=== PATIENT | female | born 1975 | race Two or more races ===

== ENCOUNTER 2020-08-07 12:45 | Outpatient (REF) | payer MEDICAID, SELFPAY | END 2020-08-07 12:46 | disposition home or self-care (01) | LOC: HO.LAB 12:45 | PROVIDERS: PCP Pediatrics; Visit Provider Internal Medicine | DX: Z20.822 Contact with and (suspected) exposure to COVID-19 (principal) | CPT/HCPCS: 36415; C9803; U0003 ==

== ENCOUNTER 2022-03-24 13:13 | Outpatient (REF) | payer OTHER, SELFPAY ==
[2022-03-24 16:00] LABS: MANUAL DIFF FLAG NO
[2022-03-24 17:27] LABS: Basophils Absolute Auto 0.1 X10*3/uL (0.0-0.2); Basophils Percent Auto 0.6 % (0-2); Eosinophils Absolute Auto 0.2 X10*3/uL (0.0-0.4); Eosinophils Percent Auto 1.7 % (0-4); Hematocrit 41.6 % (37.0-47.0); Hemoglobin 13.5 g/dl (12.0-16.0); Imm Gran Abs Auto 0.05 X10*3/uL (0.00-0.03); Imm Gran Pct Auto 0.5 % (0.0-0.4); Lymphocytes Absolute Auto 3.8 X10*3/uL (1.2-4.9); Lymphocytes Percent Auto 35.8 % (20-40); Mean Corpuscular HGB Conc 32.5 g/dl (31.0-35.0); Mean Corpuscular Volume 95.4 fL (80.0-98.0); Monocytes Absolute Auto 0.8 X10*3/uL (0.1-1.2); Monocytes Percent Auto 7.7 % (2-11); Neutrophils Absolute Auto 5.8 x10*3/uL (2.0-8.3); Neutrophils Percent Auto 53.7 % (45-73); Platelet Count 236 X10*3/uL (160-400); Red Blood Count 4.36 X10*6/uL (4.20-5.50); Red Cell Distribution Width 13.2 % (11.0-16.0); White Blood Count 10.7 X10*3/uL (4.8-10.8)
[2022-03-24 17:56] LABS: Alanine Aminotransferase 21 U/L (0-31); Albumin Level 4.3 g/dL (3.5-5.0); Alkaline Phosphatase 103 U/L (39-117); Anion Gap 14 (12-20); Aspartate Amino Transferase 23 U/L (5-31); Bilirubin Total < 0.2 mg/dL (0.0-1.0); Blood Urea Nitrogen 13 mg/dL (9-16); Carbon Dioxide 29 mmol/L (22-29); Chloride 106 mmol/L (96-108); Estimated Glomerular Filt Rate > 60; Glucose Random 92 mg/dL (60-115); Potassium 4.5 mmol/L (3.3-5.1); Sodium 144 mmol/L (135-145); Total Protein 7.8 g/dL (6.5-8.0)
== END 2022-03-24 13:14 | disposition home or self-care (01) ==
LOC: HO.LAB 13:13
PROVIDERS: PCP Internal Medicine; Visit Provider Nurse Practitioner
DX: Z01.818 Encounter for other preprocedural examination (principal); A04.8 Other specified bacterial intestinal infections; Z80.0 Family history of malignant neoplasm of digestive organs
CPT/HCPCS: 36415; 80053; 85025; 99202

== ENCOUNTER 2022-03-31 13:24 | Outpatient (REF) | payer OTHER, SELFPAY | END 2022-03-31 13:25 | disposition home or self-care (01) | LOC: HO.LNP 13:24 | PROVIDERS: Visit Provider Nurse Practitioner | DX: Z01.818 Encounter for other preprocedural examination (principal) | CPT/HCPCS: 87338 ==

== ENCOUNTER → 2022-05-05 13:25 | Outpatient (BNVA) | payer OTHER, SELFPAY | PROVIDERS: PCP Internal Medicine; Visit Provider Nurse Practitioner | DX: R14.0 Abdominal distension (gaseous) (principal); R10.10 Upper abdominal pain, unspecified; K21.9 Gastro-esophageal reflux disease without esophagitis | CPT/HCPCS: 99212 ==

== ENCOUNTER 2022-05-25 08:24 | Outpatient (REF) | payer OTHER, SELFPAY ==
--- NOTE | ~2022-05-25 | US_ITS ---
EXAMINATION: US ABDOMEN COMPLETE CLINICAL INFORMATION: Upper abdominal pain, unspecified. COMPARISON: Ultrasound retroperitoneal complete (renal) 01/26/2022 and 07/24/2021. TECHNIQUE: Real-time imaging of the abdominal viscera. FINDINGS: PANCREAS: Normal. ABDOMINAL AORTA: The proximal, mid, and distal segments are normal in caliber. INFERIOR VENA CAVA: Visualized portions are normal. LIVER: Normal. The liver is normal in size. The liver contour is normal. Parenchymal echogenicity is normal. No focal hepatic lesion. There is no intrahepatic biliary duct dilatation seen. GALLBLADDER: Normal. The gallbladder is physiologically distended without evidence of stones, sludge, polyps, wall thickening or pericholecystic fluid. COMMON BILE DUCT: Normal in caliber measuring 0.3 cm in diameter. RIGHT KIDNEY: Normal. No hydronephrosis. No renal calculi or focal parenchymal lesions. The kidney measures 12.7 cm in maximum dimension. LEFT KIDNEY: Lower pole 0.3 cm echogenic focus, possible nonobstructing calculus. No hydronephrosis or focal parenchymal lesions. The kidney measures 12.5 cm in maximum dimension. SPLEEN: Normal. The spleen measures 7.7 cm in maximum dimension. FREE FLUID: None. US/US abdomen complete IMPRESSION: Left renal lower pole 0.3 cm possible nonobstructing calculus. Otherwise unremarkable study.
== END 2022-05-25 08:25 | disposition home or self-care (01) ==
LOC: HO.HMGCX 08:24
PROVIDERS: Visit Provider Nurse Practitioner
DX: R10.10 Upper abdominal pain, unspecified (principal); R14.0 Abdominal distension (gaseous)
CPT/HCPCS: 76700

== ENCOUNTER 2022-07-29 09:32 | Day surgery (SDC) | payer OTHER, SELFPAY ==
[2022-07-23 14:31] VITALS: BMI 26.4
--- NOTE | 2022-07-28 12:45 | HO.ANESPROP2 ---
Documented by User: Brandy Smart NP 07/28/22 12:45 HPI - Anesthesia Eval Consult details Narrative: 47yo F for Colonoscopy PMFSH Active Problems Active Problems: All Active Problems (Updated 07/23/22 @ 14:34 by Rachael Reyes RN) Pre-op examination (Acute) Family history of colon cancer (Acute) H. pylori infection (Acute) Hidradenitis suppurativa (Acute) Depression with anxiety (Acute) Chronic low back pain (Acute) Herniation of intervertebral disc between L5 and S1 (Acute) Allergic rhinitis (Acute) GERD (gastroesophageal reflux disease) (Acute) Acanthosis nigricans (Acute) Abdominal bloating (Acute) Upper abdominal pain (Acute) Past Medical History Medical History (Updated 07/23/22 @ 14:34 by Rachael Reyes RN) Back pain Depression with anxiety GERD (gastroesophageal reflux disease) Surgical History Surgical History (Updated 07/23/22 @ 14:33 by Rachael Reyes RN) H/O colonoscopy H/O esophagogastroduodenoscopy History of excision of pilonidal cyst History of hysterectomy Hx of tubal ligation Social History Social History Patient Tobacco Use Status: Never used Tobacco Use of substances other than those prescribed or required for medical reasons: Yes Are you DNR?: No Advance Directives: No Advance Directives Information Provided: Yes Meds Allergies Allergy/AdvReac Type Severity Reaction Status Date / Time No Known Allergies Allergy Verified 03/24/22 13:32 Home Medications Medication Instructions Recorded Confirmed Last Taken Type alclometasone 0.05 % topical topical 03/24/22 Unknown History ointment buspirone 10 mg tablet 10 mg PO DAILY 03/24/22 07/29/22 Unknown History clindamycin phosphate 1 % topical 1 appl topical BID 03/24/22 07/29/22 Unknown History gel docusate sodium 100 mg capsule 100 mg PO BID 03/24/22 07/29/22 Unknown History ergocalciferol (vitamin D2) 1,250 1,250 mcg PO QWEEK 03/24/22 07/29/22 Unknown History mcg (50,000 unit) capsule ketorolac 0.5 % eye drops 1 drp ophthalmic-Right Q6H 03/24/22 07/29/22 Unknown History loratadine 10 mg tablet 10 mg PO DAILY 03/24/22 07/29/22 Unknown History minocycline 100 mg capsule 100 mg PO BID 03/24/22 07/29/22 Unknown History mometasone 0.1 % topical cream appl topical 03/24/22 Unknown History pantoprazole 40 mg tablet,delayed 40 mg PO DAILY 03/24/22 07/29/22 Unknown History release risperidone 1 mg tablet 1 mg PO BEDTIME 03/24/22 07/29/22 Unknown History sertraline 100 mg tablet 200 mg PO DAILY 03/24/22 07/29/22 Unknown History Exam Exam Date and Time: July 28, 2022 1245 Height,Weight and Vital Signs: Height 5 ft 11 in Weight 86.183 kg Pertinent Lab Results Pertinent Lab Results: Laboratory Tests 03/24/22 03/24/22 15:59 15:59 WBC 10.7 Hgb 13.5 Hct 41.6 Plt Count 236 Sodium 144 Potassium 4.5 Chloride 106 Carbon Dioxide 29 BUN 13 Creatinine 0.87 Documented by User: Darien Vega MD 07/29/22 10:41 PMF Past Medical History Medical History (Updated 07/23/22 @ 14:34 by Rachael Reyes RN) Back pain Depression with anxiety GERD (gastroesophageal reflux disease) Family History Family history of problems with anesthesia: No Surgical History Surgical History (Updated 07/23/22 @ 14:33 by Rachael Reyes RN) H/O colonoscopy H/O esophagogastroduodenoscopy History of excision of pilonidal cyst History of hysterectomy Hx of tubal ligation History of Problems with Anesthesia: No Social History Social History Patient Tobacco Use Status: Never used Tobacco Use of substances other than those prescribed or required for medical reasons: Yes Are you DNR?: No Advance Directives: No Advance Directives Information Provided: Yes Meds Allergies Allergy/AdvReac Type Severity Reaction Status Date / Time No Known Allergies Allergy Verified 03/24/22 13:32 Home Medications Medication Instructions Recorded Confirmed Last Taken Type alclometasone 0.05 % topical topical 03/24/22 Unknown History ointment buspirone 10 mg tablet 10 mg PO DAILY 03/24/22 07/29/22 Unknown History clindamycin phosphate 1 % topical 1 appl topical BID 03/24/22 07/29/22 Unknown History gel docusate sodium 100 mg capsule 100 mg PO BID 03/24/22 07/29/22 Unknown History ergocalciferol (vitamin D2) 1,250 1,250 mcg PO QWEEK 03/24/22 07/29/22 Unknown History mcg (50,000 unit) capsule ketorolac 0.5 % eye drops 1 drp ophthalmic-Right Q6H 03/24/22 07/29/22 Unknown History loratadine 10 mg tablet 10 mg PO DAILY 03/24/22 07/29/22 Unknown History minocycline 100 mg capsule 100 mg PO BID 03/24/22 07/29/22 Unknown History mometasone 0.1 % topical cream appl topical 03/24/22 Unknown History pantoprazole 40 mg tablet,delayed 40 mg PO DAILY 03/24/22 07/29/22 Unknown History release risperidone 1 mg tablet 1 mg PO BEDTIME 03/24/22 07/29/22 Unknown History sertraline 100 mg tablet 200 mg PO DAILY 03/24/22 07/29/22 Unknown History Exam Airway Mallampati Class: I TM Dist: >3cm Neck ROM: Full Loose/Missing/Broken Teeth: No Heart: ok Lungs: ok Assessment and Plan Assessment Anesthesia Assessment: Anesthesia Plan Discussed and Chart Reviewed Final Anesthetic Review Family History of Problems with Anesthesia: No History of Problems with Anesthesia: No NPO: Yes ASA Class: II Final Preanesthetic Review: No Changes in Pt Med Stat, Meds/Allgs Chart Reviewed, Consent Obtained/Reviewed and Anes Risks/Benef Reviewed Patient Risk: Low Procedure Risk: Low Anesthetic Plan Anesthetic Plan: MAC: and Agree w/ Assess. and Plan Disposition: Standard PACU
[2022-07-29 09:52] VITALS: BMI 25.1
[2022-07-29 09:59] VITALS: BP 135/84; PULSE 72; RESP 18; TEMP 36.2; O2SAT 100
[2022-07-29] MEDS: Lactated Ringers 1,000 ML 100 ML IVCONT (10:35)
--- NOTE | 2022-07-29 10:54 | HO.ANESPROP2 ---
HPI - Anesthesia Eval Consult details Narrative: 47 yo female patient for colonoscopy PMFSH Active Problems Active Problems: All Active Problems (Updated 07/23/22 @ 14:34 by Rachael Reyes RN) Pre-op examination (Acute) Family history of colon cancer (Acute) H. pylori infection (Acute) Hidradenitis suppurativa (Acute) Depression with anxiety (Acute) Chronic low back pain (Acute) Herniation of intervertebral disc between L5 and S1 (Acute) Allergic rhinitis (Acute) GERD (gastroesophageal reflux disease) (Acute) Acanthosis nigricans (Acute) Abdominal bloating (Acute) Upper abdominal pain (Acute) Past Medical History Medical History Back pain Depression with anxiety GERD (gastroesophageal reflux disease) Family History Family history of problems with anesthesia: No Surgical History Surgical History H/O colonoscopy H/O esophagogastroduodenoscopy History of excision of pilonidal cyst History of hysterectomy Hx of tubal ligation History of Problems with Anesthesia: No Social History Social History Patient Tobacco Use Status: Never used Tobacco Use of substances other than those prescribed or required for medical reasons: Yes Are you DNR?: No Advance Directives: No Advance Directives Information Provided: Yes Meds Allergies Allergy/AdvReac Type Severity Reaction Status Date / Time No Known Allergies Allergy Verified 03/24/22 13:32 Active Medications: Current Medications Acetaminophen (Acetaminophen 325 Mg Tablet) 650 mg PO ONCE PRN PRN Reason: Pain, Mild (Pain Scale 1-3) Lactated Ringer's (Lr) 1,000 mls @ 100 mls/hr IVCONT .Q10H GRIS Last Admin: 07/29/22 10:35 Dose: 100 mls/hr Ondansetron HCl (Ondansetron Hcl 4 Mg/2 Ml Vial) 4 mg IVPUSH ONCE PRN PRN Reason: Nausea and Vomiting Home Medications Medication Instructions Recorded Confirmed Last Taken Type alclometasone 0.05 % topical topical 03/24/22 Unknown History ointment buspirone 10 mg tablet 10 mg PO DAILY 03/24/22 07/29/22 Unknown History clindamycin phosphate 1 % topical 1 appl topical BID 03/24/22 07/29/22 Unknown History gel docusate sodium 100 mg capsule 100 mg PO BID 03/24/22 07/29/22 Unknown History ergocalciferol (vitamin D2) 1,250 1,250 mcg PO QWEEK 03/24/22 07/29/22 Unknown History mcg (50,000 unit) capsule ketorolac 0.5 % eye drops 1 drp ophthalmic-Right Q6H 03/24/22 07/29/22 Unknown History loratadine 10 mg tablet 10 mg PO DAILY 03/24/22 07/29/22 Unknown History minocycline 100 mg capsule 100 mg PO BID 03/24/22 07/29/22 Unknown History mometasone 0.1 % topical cream appl topical 03/24/22 Unknown History pantoprazole 40 mg tablet,delayed 40 mg PO DAILY 03/24/22 07/29/22 Unknown History release risperidone 1 mg tablet 1 mg PO BEDTIME 03/24/22 07/29/22 Unknown History sertraline 100 mg tablet 200 mg PO DAILY 03/24/22 07/29/22 Unknown History Exam Exam Date and Time: July 29, 2022 1054 Height,Weight and Vital Signs: Height 5 ft 11 in Weight 81.647 kg Last Vital Signs Temp 97.2 F 07/29/22 09:59 Pulse 72 07/29/22 09:59 Resp 18 07/29/22 09:59 BP 135/84 07/29/22 09:59 Pulse Ox 100 07/29/22 09:59 O2 Del Method 07/29/22 09:59 Assessment and Plan Final Anesthetic Review Family History of Problems with Anesthesia: No History of Problems with Anesthesia: No
--- NOTE | 2022-07-29 11:02 | MHC.SHP ---
Pre-Procedural Eval Section A Date of Service: 07/29/22 Section B Chief Complaint: hx of malignant neoplasm of digestive,epigastic pa Relevant Family History (Specify if Yes): No Relevant Social History: Other (specify) (cannabis) Present Medications: see Short Stay Collaborative assessment Medical History: Significant History (Back pain Depression with anxiety GERD (gastroesophageal reflux disease)) History of Previous Operations: Relevant previous surgery/procedure and date(s) (H/O colonoscopy H/O esophagogastroduodenoscopy History of excision of pilonidal cyst History of hysterectomy Hx of tubal ligation) Allergies: Allergies Allergy/AdvReac Type Severity Reaction Status Date / Time No Known Allergies Allergy Verified 03/24/22 13:32 Review of Systems Sugical H&P ROS: Negative: Constitution, Cardiovascular, Respiratory, Neurological, Psychiatric, Hem-Onc, Allergic/Immunologic, Gastrointestinal, Genitourinary, Musculoskeletal, Integumentary, Endocrine and Eyes/Ears/Nose/Throat Exam Surgical H&P Exam: Normal: HEENT, Normal: Heart, Normal: Lungs, Normal: Extremities, Normal: Abdomen, Normal: Skin and Normal: Neurological Plan Diagnosis/Plan: Unchanged I have reviewed the history and physical and performed a pertinent physical examination on my patient. No changes have occurred unless specified. Time Spent With Patient Time: Total time managing care of this patient today ____ minutes.
--- NOTE | 2022-07-29 11:06 | P.OP_ITS ---
Operative Note Operative Note Date of Service: 07/29/22 Narrative: Operative Information Procedure Description: Colonoscopy Indication: screening Anesthesia: MAC COLONOSCOPY Instrument: Olympus variable stiffness pediatric scope 190L Colonoscopy Monitoring: Vital signs and clinical assessment, continuous EKG monitoring, Pulse oximetry, Carbon Dioxide monitoring and blood pressure monitoring were done throughout the procedure. Colon withdrawal time was 9 minutes. Procedure: The patient was placed in the left lateral decubitis position and pre-procedure medications were administered. After a digital rectal examination of the ano-rectum, the video colonoscope was inserted into the rectum and advanced through the colon to the cecum/TI. The colonoscope was slowly withdrawn in a retrograde panoramic fashion and the colon mucosa was carefully examined including a retroflexed view of the rectum. Findings and interventions are described below. Procedure Difficulty: easy Findings: Terminal Ileum-normal Cecum: 7-9 mm sessile polyp removed with cold snare Ascending Colon: normal Transverse Colon -normal Descending Colon:normal Sigmoid Colon: mild diverticulosis Rectum: Retroflexion with medium sized internal hemorrhoids, grade I Anorectum - normal Colon preparation: [place] Bowel Preparation Scale Right colon; 2 Transverse colon: 2 Left colon; 2 (0 = Unprepared colon segment with mucosa not seen due to solid stool that cannot be cleared. 1 = Portion of mucosa of the colon segment seen, but other areas of the colon segment not well seen due to staining, residual stool and/or opaque liquid. 2 = Minor amount of residual staining, small fragments of stool and/or opaque liquid, but mucosa of colon segment seen well. 3 = Entire mucosa of colon segment seen well with no residual staining, small fragments of stool or opaque liquid) Impression and Post Procedure Diagnosis: diverticulosis colon polyp internal hemorrhoids Plan: High fiber diet leaflet Avoid straining at stool, epsom salts and sitz bath, anusol supps or cream Repeat Colonoscopy in 5-7 years due to adenomatous appearing polyp or earlier if clinically indicated there was some confusion as to whether or not the patient was also supposed to get an EGD. she had minimal sx and was not aware of this so it was not done. If this is still required can be rediscussed in office and ordered. Above findings were reviewed with the patient and relevant handouts were provided if indicated.
[2022-07-29 11:39] VITALS: BP 133/73; PULSE 77; RESP 16; TEMP 36.1; O2SAT 100
[2022-07-29 11:54] VITALS: BP 146/81; PULSE 71; RESP 16; TEMP 36.1; O2SAT 100
== END 2022-07-29 12:52 | disposition home or self-care (01) ==
PROVIDERS: PCP Internal Medicine; Visit Provider Internal Medicine Gastroenterology
PROC: (CPT 45385; principal; 2022-07-29 10:50)
DX: Z12.11 Encounter for screening for malignant neoplasm of colon (principal); Z80.0 Family history of malignant neoplasm of digestive organs; D12.0 Benign neoplasm of cecum; K57.30 Diverticulosis of large intestine without perforation or abscess without bleeding; K64.0 First degree hemorrhoids; K59.00 Constipation, unspecified; K21.9 Gastro-esophageal reflux disease without esophagitis; A04.8 Other specified bacterial intestinal infections; F41.8 Other specified anxiety disorders; L83 Acanthosis nigricans; J30.9 Allergic rhinitis, unspecified; Z79.899 Other long term (current) drug therapy
CPT/HCPCS: 45385; 88305

== ENCOUNTER → 2022-08-12 09:55 | Outpatient (BNVA) | payer OTHER, SELFPAY | PROVIDERS: PCP Internal Medicine; Visit Provider Nurse Practitioner | DX: K21.9 Gastro-esophageal reflux disease without esophagitis (principal); R14.0 Abdominal distension (gaseous); Z80.0 Family history of malignant neoplasm of digestive organs | CPT/HCPCS: 99212 ==

== ENCOUNTER → 2022-11-05 09:55 | Outpatient (BNVA) | payer OTHER, SELFPAY | PROVIDERS: PCP Internal Medicine; Visit Provider Internal Medicine Rheumatology | DX: M19.041 Primary osteoarthritis, right hand (principal); L73.2 Hidradenitis suppurativa | CPT/HCPCS: 99212 ==

== ENCOUNTER → 2022-11-10 10:33 | Outpatient (BNVA) | payer OTHER, SELFPAY | PROVIDERS: PCP Internal Medicine; Referring Provider Internal Medicine; Visit Provider Nurse Practitioner | DX: K21.9 Gastro-esophageal reflux disease without esophagitis (principal); R10.10 Upper abdominal pain, unspecified; K59.00 Constipation, unspecified; Z80.0 Family history of malignant neoplasm of digestive organs | CPT/HCPCS: 99212 ==

== ENCOUNTER → 2022-12-22 10:59 | Outpatient (BNVA) | payer OTHER, SELFPAY | PROVIDERS: PCP Internal Medicine; Referring Provider Internal Medicine; Visit Provider Nurse Practitioner | DX: K59.00 Constipation, unspecified (principal); K21.9 Gastro-esophageal reflux disease without esophagitis | CPT/HCPCS: 99212 ==

== ENCOUNTER 2023-06-22 10:46 | Outpatient (REF) | payer OTHER, SELFPAY ==
[2023-06-22 11:44] LABS: MANUAL DIFF FLAG NO
[2023-06-22 12:42] LABS: Basophils Absolute Auto 0.1 X10*3/uL (0.0-0.2); Basophils Percent Auto 0.6 % (0-2); Eosinophils Absolute Auto 0.1 X10*3/uL (0.0-0.4); Eosinophils Percent Auto 1.4 % (0-4); Hematocrit 41.1 % (37.0-47.0); Hemoglobin 13.4 g/dl (12.0-16.0); Imm Gran Abs Auto 0.03 X10*3/uL (0.00-0.03); Imm Gran Pct Auto 0.3 % (0.0-0.4); Lymphocytes Absolute Auto 4.9 X10*3/uL (1.2-4.9); Lymphocytes Percent Auto 47.3 % (20-40); Mean Corpuscular HGB Conc 32.6 g/dl (31.0-35.0); Mean Corpuscular Hemoglobin 31.6 pg (27.0-33.0); Mean Corpuscular Volume 96.9 fL (80.0-98.0); Mean Platelet Volume 10.5 fL (9.4-12.3); Monocytes Absolute Auto 0.9 X10*3/uL (0.1-1.2); Monocytes Percent Auto 8.8 % (2-11); Neutrophils Absolute Auto 4.3 x10*3/uL (2.0-8.3); Neutrophils Percent Auto 41.6 % (45-73); Platelet Count 234 X10*3/uL (160-400); Red Blood Count 4.24 X10*6/uL (4.20-5.50); Red Cell Distribution Width 13.3 % (11.0-16.0); White Blood Count 10.3 X10*3/uL (4.8-10.8)
[2023-06-22 12:43] LABS: Appearance Urine Clear; Color Urine Yellow; Glucose Urine UA Negative (Negative); Leukocyte Esterase Urine Negative (Negative); Nitrite Urine Negative (Negative); Specific Gravity - Urine 1.015 (1.005-1.025); Urine Blood Negative (Negative); Urine Ketones Negative (Negative); Urine Protein Negative (Neg-Trace)
[2023-06-22 13:16] LABS: Alanine Aminotransferase 17 U/L (0-31); Albumin Level 4.3 g/dL (3.5-5.0); Alkaline Phosphatase 98 U/L (39-117); Anion Gap 10 (12-20); Aspartate Amino Transferase 20 U/L (5-31); Bilirubin Total 0.3 mg/dL (0.0-1.0); Blood Urea Nitrogen 12 mg/dL (9-16); Calcium 9.8 mg/dL (8.4-10.2); Carbon Dioxide 28 mmol/L (22-29); Chloride 108 mmol/L (96-108); Estimated Glomerular Filt Rate > 60; Glucose Random 88 mg/dL (60-115); Potassium 4.5 mmol/L (3.3-5.1); Sodium 141 mmol/L (135-145); Total Protein 7.3 g/dL (6.5-8.0)
[2023-06-22 13:34] LABS: TSH reflex Free T4 0.82 uIU/mL (0.32-4.0)
== END 2023-06-22 10:47 | disposition home or self-care (01) ==
LOC: HO.LAB 10:46
PROVIDERS: PCP Internal Medicine; Visit Provider Nurse Practitioner
DX: R63.4 Abnormal weight loss (principal); K59.00 Constipation, unspecified; K21.9 Gastro-esophageal reflux disease without esophagitis; R11.0 Nausea; R10.10 Upper abdominal pain, unspecified; R10.13 Epigastric pain
CPT/HCPCS: 36415; 80053; 81003; 84443; 85025; 99212

== ENCOUNTER 2023-06-22 10:46 | Outpatient (AMB) | payer OTHER, SELFPAY ==
[2023-06-22 10:52] VITALS: BP 140/72; PULSE 75; BMI 26.0
--- NOTE | 2023-06-22 10:52 | A.OFFVIS_ITS ---
Intake Vital Signs 06/22/23 10:52 Height 5 ft 11 in Weight 186 lb 8.177 oz BMI 26.0 BP 140/72 H Blood Pressure Location Lt brachial Position Sitting Pulse 75 Intake Visit Reasons: 6 mnth follow up Intake Note: Patient presents to in office visit today in follow up of 6 months. Patient c/o diarrhea x3 days and abdominal pain after meals. She also c/o headaches, and mild nausea this morning. Bottom Sprayer Required: No Allergies No Known Allergies Allergy (Verified 06/22/23 11:02) HPI 6 mnth follow up HPI Details Assessment & Plan (1) Constipation: Code(s): K59.00 - Constipation, unspecified Plan: Nidhi lucas She is doing well with her GI medications. She is somewhat tearful and praying when I come into the room because her anxiety is high with the troubles in the world. But she has a good perspective on this. She continues on her aciphex 20mg bid, cimetidine, colace and she feels that this controls her GI conditions well. ROV 6 mos. (2) GERD (gastroesophageal reflux diseas e): Code(s): K21.9 - Gastro-esophageal reflux disease without esophagitis Medications: Refilled docusate sodium 100 mg PO BID 60 c aps 6RF K59.00 - Constipat ion, unspecified rabeprazole (AcipH ex) 20 mg PO DAILY 30 tabs 6RF K21.9 - Gastro-eso phageal reflux dis ease without esoph agitis simethicone aft er meals 180 mg PO .tidac 9 0 caps 6RF 30 days R14.0 - Abdominal distension (gaseou s), R10.10 - Upper abdominal pain, u nspecified cimetidine 800 mg PO BEDTIME 30 tabs 3RF TODAY'S VISIT Nidhi lucas She tells me that 4 days ago she began having pain in the gastric epigastric area and then postprandial fecal urgency along with borborygmus. Her stools have ranged from soft multiple movements to some looser stools. No fever chills or severe abdominal pain. Like she may have picked up a GI bug. For now I advised her to keep her diet light and will wait and watch and if it worsens she should come in sooner to see me. It is also noted that she has lost about 10 lb since last August without any intentional dieting or change in her activity level. This is a little concerning to her. She had much blood work so will get basic labs including a thyroid any urinalysis to screen for any metabolic problems that may be causing her to lose weight. She continues on her aciphex 20mg bid, cimetidine, colace and she feels that this controls her GI conditions well. Return office visit in 6 weeks to see how she is feeling and to go over these results. [facility] Medical History Back pain GERD (gastroesophageal reflux disease) Depression with anxiety Surgical History Hx of tubal ligation History of excision of pilonidal cyst History of hysterectomy H/O esophagogastroduodenoscopy H/O colonoscopy Family History Mother Acute arthritis Plantar fasciitis Social History Household Members: Children Housing: Apartment Patient Tobacco Use Status: Never used Tobacco Substance Use Type: Marijuana Current occupational status: disabled Review of Systems Const Denies fatigue, Denies fever(s), Denies night sweats, Denies poor appetite and Reports weight loss ENT Reports Normal hearing present, Denies dental pain, Denies dysphagia, Denies hearing loss, Denies mouth pain, Denies odynophagia, Denies throat swelling, Denies tongue swelling and Reports other (Dentition adequate) Card Reports no additional complaints Resp Reports no additional complaints GI Reports abdominal pain, Denies melena, Reports bloating, Denies hematochezia, Denies constipation, Denies GI cramping, Denies dysphagia, Denies excessive flatus, Denies early satiety, Reports heartburn, Denies diarrhea, Reports loose stools, Denies nausea, Denies odynophagia, Denies vomiting and Denies hematemesis Skin/Breast Denies pruritus, Denies lesions, Denies rash and Denies jaundice Neuro Reports Normal hearing present and Denies Abnormal speech present Endo Denies fatigue Aller/Immun Denies throat swelling and Denies tongue swelling Physical Exam Vital Signs: Last Vital Signs Pulse 75 06/22/23 10:52 BP 140/72 H 06/22/23 10:52 BMI result Body Mass Index 26.0 Const General: cooperative, no acute distress, well developed and well groomed Nutritional Appearance: average body habitus and well nourished Orientation/consciousness: oriented to person, oriented to place and oriented to time Limitations: No language barrier HEENT Head: Yes normocephalic and Yes atraumatic Eyes General: appearance normal, both eyes and all related structures Pupils: Equal, round and reactive pupils present Neck Neck: Yes normal visual inspection and Yes no lymphadenopathy Thyroid: Thyroid normal Resp Effort & Inspection: normal respiratory effort and able to speak in complete sentences Auscultation: clear to auscultation bilaterally Cardio Rate: regular rate Rhythm: regular rhythm Heart sounds: Normal, physiologic split S2 sound present Peripheral pulses: radial pulses present and posterior tibial pulses present GI Inspection: No distended and No Abdominal panniculus present Palpation (GI): Soft to palpation, nontender, no guarding, not rigid and No hepatosplenomegaly present Percussion: Yes normal to percussion Auscultation: normal bowel sounds Rectal Exam - Female: deferred Skin General skin exam: no rashes or lesions noted, turgor normal, skin not dry, no jaundice, No spider nevi and no striae Rashes: no rashes Nails: normal Neuro General: oriented to person, oriented to place and oriented to time Cranial nerves: Yes Equal, round and reactive pupils present and Yes Normal hearing present Speech: No Abnormal speech present Extrem General: Yes normal to inspection, No clubbing, No cyanosis and No edema Psych Appearance: grossly normal and well kempt Mental Status: mental status grossly normal Speech and movement: Normal speech and movement present Affect: normal affect Attitude: cooperative Thought process: Normal thought process present and not confabulating Thought content: Normal thought content present Insight: Limited insight present (Psych) Judgement: Limited judgement present (Psych) Assessment & Plan Assessment & Plan (1) Constipation: Code(s): K59.00 - Constipation, unspecified (2) GERD (gastroesophageal reflux disease): Code(s): K21.9 - Gastro-esophageal reflux disease without esophagitis (3) Weight loss: Code(s): R63.4 - Abnormal weight loss Plan [place]ian #declines To she is here today with her , Darien, who is supportive. She tells me that 4 days ago she began having pain in the gastric epigastric area and then postprandial fecal urgency along with borborygmus. Her stools have ranged from soft multiple movements to some looser stools. No fever chills or severe abdominal pain. Like she may have picked up a GI bug. For now I advised her to keep her diet light and will wait and watch and if it worsens she should come in sooner to see me. It is also noted that she has lost about 10 lb since last August without any intentional dieting or change in her activity level. This is a little concerning to her. She had much blood work so will get basic labs including a thyroid any urinalysis to screen for any metabolic problems that may be causing her to lose weight. She continues on her aciphex 20mg bid, cimetidine, colace and she feels that this controls her GI conditions well. Return office visit in 6 weeks to see how she is feeling and to go over these results Orders: Orders Complete Blood Count Auto Diff Today R63.4 - Abnormal weight loss UA CC w/rflx Micro + Cult Today R63.4 - Abnormal weight loss TSH reflex Free T4 Today R63.4 - Abnormal weight loss Comprehensive Met. Panel Today R63.4 - Abnormal weight loss Medications: Refilled rabeprazole 20 mg PO DAILY 90 tabs 2RF K21.9 - Gastro-esophageal reflux disease without esophagitis simethicone after meals 180 mg PO .tidac 30 days 90 caps 6RF R10.10 - Upper abdominal pain, unspecified, R14.0 - Abdominal distension (gaseous) docusate sodium 100 mg PO BID 60 caps 6RF K59.00 - Constipation, unspecified cimetidine 800 mg PO BEDTIME 90 tabs 1RF Coding Level of Care Code Est Pt Level 3 (10866) Diagnoses Constipation K59.00 GERD (gastroesophageal reflux disease) K21.9 Weight loss R63.4
== END 2023-06-22 11:28 | disposition home or self-care (01) ==
PROVIDERS: PCP Internal Medicine; Visit Provider Nurse Practitioner
DX: K59.00 Constipation, unspecified (principal); K21.9 Gastro-esophageal reflux disease without esophagitis; R63.4 Abnormal weight loss
CPT/HCPCS: 99213

== ENCOUNTER 2023-08-03 10:54 | Outpatient (REF) | payer OTHER, SELFPAY | END 2023-08-03 10:55 | disposition home or self-care (01) | LOC: HO.LAB 10:54 | PROVIDERS: PCP Internal Medicine; Visit Provider Nurse Practitioner | DX: R19.7 Diarrhea, unspecified (principal); K21.9 Gastro-esophageal reflux disease without esophagitis; K59.00 Constipation, unspecified; R63.4 Abnormal weight loss; D12.6 Benign neoplasm of colon, unspecified | CPT/HCPCS: 99212 ==

== ENCOUNTER 2023-08-03 11:17 | Outpatient (AMB) | payer OTHER, SELFPAY ==
[2023-08-03 10:57] VITALS: BP 139/67; PULSE 70; BMI 25.9
--- NOTE | 2023-08-03 10:57 | A.OFFVIS_ITS ---
Intake Vital Signs 08/03/23 10:57 Height 5 ft 11 in Weight 186 lb 1.122 oz BMI 25.9 BP 139/67 Blood Pressure Location Lt brachial Position Sitting Pulse 70 Intake Visit Reasons: 6 weekfollow up Intake Note: Patient presents to in office visit today in follow up of 6 weeks follow up of GERD and labs. CC: Patient c/o increased gas with foul smell and rumbling noises from her stomach. She states that she would like to have EGD done. Jewelry Consultant Required: No Accompanied by: Self / Same As Patient Allergies No Known Allergies Allergy (Verified 08/03/23 11:02) HPI 6 weekfollow up HPI Details Assessment & Plan (1) Constipation: Code(s): K59.00 - Constipation, unspecified (2) GERD (gastroesophageal reflux diseas e): Code(s): K21.9 - Gastro-esophageal reflux disease without esophagitis (3) Weight loss: Code(s): R63.4 - Abnormal weight loss Plan Brazilian #declines To she is here today with her , [place], who is supportive. She tells me that 4 days ago she began having pain in the gastric epigastric area and then postprandial fecal urgency along with borborygmus. Her stools have ranged from soft multiple movements to some looser stools. No fever chills or severe abdominal pain. Like she may have picked up a GI bug. For now I advised her to keep her diet light and will wait and watch and if it worsens she should come in sooner to see me. It is also noted that she has lost about 10 lb since last August without any intentional dieting or change in her activity level. This is a little concerning to her. She had much blood work so will get basic labs including a thyroid any urinalysis to screen for any metabolic problems that may be causing her to lose weight. She continues on her aciphex 20mg bid, cimetidine, colace and simethicone and she feels that this controls her GI conditions well. Return office visit in 6 weeks to see how she is feeling and to go over these results Orders: Orders Complete Blood Cou nt Auto Diff Today R63.4 - Abnormal w eight loss UA CC w/rflx Micro + Cult Today R63.4 - Abnormal w eight loss TSH reflex Free T4 Today R63.4 - Abnormal w eight loss Comprehensive Met. Panel Today R63.4 - Abnormal w eight loss Medications: Refilled rabeprazole 20 mg PO DAILY 90 tabs 2RF K21.9 - Gastro-eso phageal reflux dis ease without esoph agitis simethicone aft er meals 180 mg PO .tidac 30 days 90 caps 6R F R10.10 - Upper abd ominal pain, unspe cified, R14.0 - Ab dominal distension (gaseous) docusate sodium 100 mg PO BID 60 caps 6RF K59.00 - Constipat ion, unspecified cimetidine 800 mg PO BEDTIME 90 tabs 1RF LABS: Laboratory Tests 06/22/23 11:42 WBC 10.3 Hgb 13.4 Hct 41.1 Plt Count 234 Estimated GFR > 60 Total Bilirubin 0.3 AST 20 ALT 17 Alkaline Phosphata se 98 TSH 0.82 08/23/22-[address]: ALBERTO BRUCE,CARLOS RODRIGUEZ MD ORDERED: Ua Clean Catch QUERIES: Source : Urine, Clean Cat ch Test Result Flag Refere nce Ur Color Yellow Ur Appear Clear PH 6.0 5.0-9.0 Ur Glu Neg ative Negative m g/dL Urine Blood Negative Neg ative Spec G ravity Ur 1.015 1.005-1.025 U rine Protein Nega tive Neg-Trace m g/dL Urine [place] es Negative Neg ative mg/dL Ur N itrite Negativ e Negative Ur Russell Esterase Ne gative Negative TODAY'S VISIT Brazilian #declines She is accompanied by her who is supportive. She is better in terms of the epigastric discomfort but she straight diarrhea for a whole week last week. She really thinks it might be a GI bug but she also questions ? is my body changing? ? Is a difficult thing to assess. She is currently having softer stools so we can not do stool studies right now. I think what I will do is order the stool studies and if she has a return of the diarrhea ask her to do them then to see if there is something that she can not quite shape. I will also give her a trial of dicyclomine to use it the diarrhea occurs. I also counseled her that when her stool is soft to watery she should stop her Colace. I do not think she was doing this. She also notes that even though her stools are beginning to form they are extremely malodorous right now. She continues on her aciphex 20mg bid, cimetidine, colace and simethicone and she feels that this controls her GI conditions well. Return office visit in 4 weeks to see how she is doing. [facility] Medical History Upper abdominal pain Acanthosis nigricans H. pylori infection Family history of colon cancer Back pain GERD (gastroesophageal reflux disease) Depression with anxiety Surgical History Hx of tubal ligation History of excision of pilonidal cyst History of hysterectomy H/O esophagogastroduodenoscopy H/O colonoscopy Family History Mother Acute arthritis Plantar fasciitis Social History Household Members: Children Housing: Apartment Patient Tobacco Use Status: Never used Tobacco Substance Use Type: Marijuana Current occupational status: disabled Review of Systems Const Denies fatigue, Denies fever(s), Denies night sweats, Denies poor appetite and Denies weight loss ENT Reports Normal hearing present, Denies dental pain, Denies dysphagia, Denies hearing loss, Denies mouth pain, Denies odynophagia, Denies throat swelling, Denies tongue swelling and Reports other (Dentition adequate) Card Reports no additional complaints Resp Reports no additional complaints GI Denies abdominal pain, Denies melena, Denies bloating, Denies hematochezia, Denies constipation, Reports GI cramping, Denies dysphagia, Denies excessive flatus, Denies early satiety, Reports heartburn, Reports diarrhea, Denies nausea, Denies odynophagia, Denies vomiting and Denies hematemesis Skin/Breast Denies pruritus, Denies lesions, Denies rash and Denies jaundice Neuro Reports Normal hearing present and Denies Abnormal speech present Psych Reports anxiety, Reports depression, Denies homicidal ideation and Denies suicidal ideation Endo Denies fatigue Aller/Immun Denies throat swelling and Denies tongue swelling Physical Exam Vital Signs: Last Vital Signs Pulse 70 08/03/23 10:57 BP 139/67 08/03/23 10:57 BMI result Body Mass Index 25.9 Const General: cooperative, no acute distress, well developed and well groomed Nutritional Appearance: average body habitus and well nourished Orientation/consciousness: oriented to person, oriented to place and oriented to time Limitations: No language barrier HEENT Head: Yes normocephalic and Yes atraumatic Eyes General: appearance normal, both eyes and all related structures Pupils: Equal, round and reactive pupils present Neck Neck: Yes normal visual inspection and Yes no lymphadenopathy Thyroid: Thyroid normal Resp Effort & Inspection: normal respiratory effort and able to speak in complete sentences Auscultation: clear to auscultation bilaterally Cardio Rate: regular rate Rhythm: regular rhythm Heart sounds: Normal, physiologic split S2 sound present Peripheral pulses: radial pulses present and posterior tibial pulses present GI Inspection: No distended, No Abdominal panniculus present and Yes obesity Palpation (GI): Soft to palpation, nontender, no guarding, not rigid and No hepatosplenomegaly present Percussion: Yes normal to percussion Auscultation: normal bowel sounds Rectal Exam - Female: deferred Skin General skin exam: no rashes or lesions noted, turgor normal, skin not dry, no jaundice, No spider nevi and no striae Rashes: no rashes Nails: normal Neuro General: oriented to person, oriented to place and oriented to time Cranial nerves: Yes Equal, round and reactive pupils present and Yes Normal hearing present Speech: No Abnormal speech present Extrem General: Yes normal to inspection, No clubbing, No cyanosis and No edema Psych Appearance: grossly normal and well kempt Mental Status: mental status grossly normal Speech and movement: Normal speech and movement present Affect: Labile affect present and Anxious affect present Attitude: cooperative Thought process: Normal thought process present and not confabulating Thought content: Normal thought content present Insight: Limited insight present (Psych) Judgement: Limited judgement present (Psych) Assessment & Plan Assessment & Plan (1) Weight loss: Code(s): R63.4 - Abnormal weight loss (2) Constipation: Code(s): K59.00 - Constipation, unspecified (3) GERD (gastroesophageal reflux disease): Code(s): K21.9 - Gastro-esophageal reflux disease without esophagitis (4) Tubular adenoma of colon: Comment: 2022 scope= TA repeat in 5 years Code(s): D12.6 - Benign neoplasm of colon, unspecified (5) Acute diarrhea: Code(s): R19.7 - Diarrhea, unspecified Plan She is accompanied by her who is supportive. She is better in terms of the epigastric discomfort but she straight diarrhea for a whole week last week. She really thinks it might be a GI bug but she also questions ? is my body changing? ? Is a difficult thing to assess. She is currently having softer stools so we can not do stool studies right now. I think what I will do is order the stool studies and if she has a return of the diarrhea ask her to do them then to see if there is something that she can not quite shape. I will also give her a trial of dicyclomine to use it the diarrhea occurs. I also counseled her that when her stool is soft to watery she should stop her Colace. I do not think she was doing this. She also notes that even though her stools are beginning to form they are extremely malodorous right now. She also has had some changes in her psych medications and she is a bit frustrated that she is on more than 1 pill for this and yet she still has depression. This prompts a discussion about the very long onset of action of antidepressant medications and how this is frustrating for psychiatric patients because it take such a long time to see if something is working and to find the right medication. I am uncertain if changing these medications may be con tributing to her GI symptoms. She continues on her aciphex 20mg bid, cimetidine, colace and simethicone and she feels that this controls her GI conditions well. Return office visit in 4 weeks to see how she is doing. Orders: Orders GI Panel Today R19.7 - Diarrhea, unspecified Medications: New dicyclomine 20 mg PO QID 30 days PRN 120 tabs 1RF diarrhea Coding Level of Care Code Est Pt Level 3 (20306) Diagnoses Weight loss R63.4 Constipation K59.00 GERD (gastroesophageal reflux disease) K21.9 Tubular adenoma of colon D12.6 Acute diarrhea R19.7
== END 2023-08-03 11:36 | disposition home or self-care (01) ==
PROVIDERS: PCP Internal Medicine; Visit Provider Nurse Practitioner
DX: R63.4 Abnormal weight loss (principal); K59.00 Constipation, unspecified; K21.9 Gastro-esophageal reflux disease without esophagitis; D12.6 Benign neoplasm of colon, unspecified; R19.7 Diarrhea, unspecified
CPT/HCPCS: 99213

== ENCOUNTER 2023-08-18 13:43 | Outpatient (REF) | payer OTHER, SELFPAY ==
[2023-08-18 16:01] LABS: Adenovirus F 40/41 Not Detected (Not Detect.); Astrovirus Not Detected (Not Detect.); Campylobacter Not Detected (Not Detect.); Cryptosporidium Not Detected (Not Detect.); Cyclospora cayetanensis Not Detected (Not Detect.); E. coli EAEC Not Detected (Not Detect.); E. coli EPEC Not Detected (Not Detect.); E. coli ETEC Not Detected (Not Detect.); E. coli STEC Not Detected (Not Detect.); Entamoeba histolytica Not Detected (Not Detect.); Giardia lamblia Not Detected (Not Detect.); Norovirus GI/GII Not Detected (Not Detect.); Plesiomonas shigelloides Not Detected (Not Detect.); Rotavirus A Not Detected (Not Detect.); Salmonella Not Detected (Not Detect.); Sapovirus Not Detected (Not Detect.); Shigella sp./EIEC Not Detected (Not Detect.); Vibrio Not Detected (Not Detect.); Vibrio Cholerae Not Detected (Not Detect.); Yersinia enterocolitica Not Detected (Not Detect.)
== END 2023-08-18 13:44 | disposition home or self-care (01) ==
LOC: HO.LNP 13:43
PROVIDERS: Visit Provider Nurse Practitioner
DX: R19.7 Diarrhea, unspecified (principal)
CPT/HCPCS: 87507

== ENCOUNTER 2023-09-01 11:30 | Outpatient (AMB) | payer OTHER, SELFPAY ==
--- NOTE | 2023-09-01 11:32 | A.OFFVIS_ITS ---
Intake Vital Signs 09/01/23 11:33 Height 5 ft 11 in Weight 185 lb 3.013 oz BMI 25.8 BP 139/76 Blood Pressure Location Rt brachial Position Sitting Respiration 79 H Intake Visit Reasons: 4 week follow up Intake Note: Patient presents to in office visit today in follow up of 4 weeks follow up of labs. CC: Patient states that since her last visit she is doing better but she has been constipated and having RUQ abdominal pain. Inserting Operator Required: No Accompanied by: Self / Same As Patient Allergies No Known Allergies Allergy (Verified 09/01/23 11:39) HPI 4 week follow up HPI Details Assessment & Plan (1) Weight loss: Code(s): R63.4 - Abnormal weight loss (2) Constipation: Code(s): K59.00 - Constipation, unspecified (3) GERD (gastroesophageal reflux diseas e): Code(s): K21.9 - Gastro-esophageal reflux disease without esophagitis (4) Tubular adenoma of colon: Comment: 2022 scope= TA repeat in 5 years Code(s): D12.6 - Benign neoplasm of colon, unspecified (5) Acute diarrhea: Code(s): R19.7 - Diarrhea, unspecified Plan She is accompanied by her who is supportive. She is better in terms of the epigastric discomfort but she straight diarrhea for a whole week last week. She really thinks it might be a GI bug but she also questions ? is my body changing? ? Is a difficult thing to assess. She is currently having softer stools so we can not do stool studies right now. I think what I will do is order the stool studies and if she has a return of the diarrhea ask her to do them then to see if there is something that she can not quite shape. I will also give her a trial of dicyclomine to use it the diarrhea occurs. I also counseled her that when her stool is soft to watery she should stop her Colace. I do not think she was doing this. She also notes that even though her stools are beginning to form they are extremely malodorous right now. She also has had some changes in her psych medications and she is a bit frustrated that she is on more than 1 pill for this and yet she still has depression. This prompts a discussion about the very long onset of action of antidepressant medications and how this is frustrating for psychiatric patients because it take such a long time to see if something is working and to find the right medication. I am uncertain if changing these medications may be contributing to her GI symptoms. She continues on her aciphex 20mg bid, cimetidine, colace and simethicone and she feels that this controls her GI conditions well. Return office visit in 4 weeks to see how she is doing. Orders: Orders GI Panel Today R19.7 - Diarrhea, unspecified Medications: New dicyclomine 20 mg PO QID 30 d ays PRN 120 tabs 1 RF diarrhea LABS: 08/18/23-[address]: ORDERED: GI Panel Test Result Flag Refere nce Campylobacter No t Detected Not Det ect. P. shigell oides Not Detected No t Detect. Salmo erika Not Detect ed Not Detect. Vibrio Not D etected Not Detect . Vibrio Choler ae Not Detected Not D etect. Y. enter ocolit. Not Detected Not Detect. E. coli EAEC Not Dete cted Not Detect. E. coli EPEC Not Detected Not Dete ct. E. coli ETE C Not Detected Not Detect. E. col i STEC Not Detecte d Not Detect. E . coli O157 Not anitha licable Not Detect. E. coli c ontaining the O157 antigen are a sub set of Shig a-like toxin-produ cing E. coli (STEC ). Shigella/EIEC Not Detected Not D etect. Cryptosp oridium Not Detected Not Detect. Cyc lospora Not Dete cted Not Detect. E. histolytica Not Detected Not Dete ct. Giardia cherry blia Not Detected Not Detect. Adenov irus Not Detecte d Not Detect. A strovirus Not De tected Not Detect. Norovirus N ot Detected Not De tect. Rotavirus A Not Detected N ot Detect. Crow virus Not Detec janel Not Detect. TODAY'S VISIT Martiniquais #declines, with dtr who is supportive She continues on her aciphex 20mg bid, cimetidine, colace and simethicone and she feels that this controls her GI conditions well. Her stooling has normalized, and she does find the bentyl helpful when she has diarrhea but all is quiet now. ROV 6 mos. PFSH Medical History Upper abdominal pain Acanthosis nigricans H. pylori infection Family history of colon cancer Back pain GERD (gastroesophageal reflux disease) Depression with anxiety Surgical History Hx of tubal ligation History of excision of pilonidal cyst History of hysterectomy H/O esophagogastroduodenoscopy H/O colonoscopy Family History Mother Acute arthritis Plantar fasciitis Social History Household Members: Children Housing: Apartment Patient Tobacco Use Status: Never used Tobacco Substance Use Type: Marijuana Current occupational status: disabled Review of Systems Const Denies fatigue, Denies fever(s), Denies night sweats, Denies poor appetite and Denies weight loss ENT Reports Normal hearing present, Denies dental pain, Denies dysphagia, Denies hearing loss, Denies mouth pain, Denies odynophagia, Denies throat swelling, Denies tongue swelling and Reports other (Dentition adequate) Card Reports no additional complaints Resp Reports no additional complaints GI Details: Denies abdominal pain, Denies melena, Reports bloating, Denies hematochezia, Denies constipation, Denies GI cramping, Denies dysphagia, Denies excessive flatus, Denies early satiety, Reports heartburn, Denies diarrhea, Denies nausea, Denies odynophagia, Denies vomiting and Denies hematemesis Skin/Breast Denies pruritus, Denies lesions, Denies rash and Denies jaundice Neuro Reports Normal hearing present and Denies Abnormal speech present Endo Denies fatigue Aller/Immun Denies throat swelling and Denies tongue swelling Physical Exam Vital Signs: Last Vital Signs Resp 79 H 09/01/23 11:33 BP 139/76 09/01/23 11:33 BMI result Body Mass Index 25.8 Const General: cooperative, no acute distress, well developed and well groomed Nutritional Appearance: average body habitus and well nourished Orientation/consciousness: oriented to person, oriented to place and oriented to time Limitations: language barrier HEENT Head: Yes normocephalic and Yes atraumatic Eyes General: appearance normal, both eyes and all related structures Pupils: Equal, round and reactive pupils present Neck Neck: Yes normal visual inspection and Yes no lymphadenopathy Thyroid: Thyroid normal Resp Effort & Inspection: normal respiratory effort and able to speak in complete sentences Auscultation: clear to auscultation bilaterally Cardio Rate: regular rate Rhythm: regular rhythm Heart sounds: Normal, physiologic split S2 sound present Peripheral pulses: radial pulses present and posterior tibial pulses present GI Inspection: No distended and No Abdominal panniculus present Palpation (GI): Soft to palpation, nontender, no guarding, not rigid and No hepatosplenomegaly present Percussion: Yes normal to percussion Auscultation: normal bowel sounds Rectal Exam - Female: deferred Skin General skin exam: no rashes or lesions noted, turgor normal, skin not dry, no jaundice, No spider nevi and no striae Rashes: no rashes Nails: normal Neuro General: oriented to person, oriented to place and oriented to time Cranial nerves: Yes Equal, round and reactive pupils present and Yes Normal hearing present Speech: No Abnormal speech present Extrem General: Yes normal to inspection, No clubbing, No cyanosis and No edema Psych Appearance: grossly normal and well kempt Mental Status: mental status grossly normal Speech and movement: Normal speech and movement present Affect: normal affect Attitude: cooperative Thought process: Normal thought process present and not confabulating Thought content: Normal thought content present Insight: Limited insight present (Psych) Judgement: Limited judgement present (Psych) Results Reviewed Results Reviewed: 08/18/23-1343 OT : ORDERED: GI Panel Test Result Flag Reference Campylobacter Not Detected Not Detect. P. shigelloides Not Detected Not Detect. Salmonella Not Detected Not Detect. Vibrio Not Detected Not Detect. Vibrio Cholerae Not Detected Not Detect. Y. enterocolit. Not Detected Not Detect. E. coli EAEC Not Detected Not Detect. E. coli EPEC Not Detected Not Detect. E. coli ETEC Not Detected Not Detect. E. coli STEC Not Detected Not Detect. E. coli O157 Not applicable Not Detect. E. coli containing the O157 antigen are a subset of Shiga-like toxin-producing E. coli (STEC). Shigella/EIEC Not Detected Not Detect. Cryptosporidium Not Detected Not Detect. Cyclospora Not Detected Not Detect. E. histolytica Not Detected Not Detect. Giardia lamblia Not Detected Not Detect. Adenovirus Not Detected Not Detect. Astrovirus Not Detected Not Detect. Norovirus Not Detected Not Detect. Rotavirus A Not Detected Not Detect. Sapovirus Not Detected Not Detect. Assessment & Plan Assessment & Plan (1) Constipation: Code(s): K59.00 - Constipation, unspecified (2) Acute diarrhea: Code(s): R19.7 - Diarrhea, unspecified (3) GERD (gastroesophageal reflux disease): Code(s): K21.9 - Gastro-esophageal reflux disease without esophagitis Plan [place]iqu[place] #declines, with dtr who is supportive She continues on her aciphex 20mg bid, cimetidine, colace and simethicone and she feels that this controls her GI conditions well. Her stooling has normalized, and she does find the bentyl helpful when she has diarrhea but all is quiet now. ROV 6 mos. Coding Level of Care Code Est Pt Level 3 (98514) Diagnoses Constipation K59.00 Acute diarrhea R19.7 GERD (gastroesophageal reflux disease) K21.9
[2023-09-01 11:33] VITALS: BP 139/76; RESP 79; BMI 25.8
== END 2023-09-01 12:00 | disposition home or self-care (01) ==
PROVIDERS: PCP Internal Medicine; Visit Provider Nurse Practitioner
DX: K59.00 Constipation, unspecified (principal); R19.7 Diarrhea, unspecified; K21.9 Gastro-esophageal reflux disease without esophagitis
CPT/HCPCS: 99213

== ENCOUNTER → 2023-09-01 11:30 | Outpatient (BNVA) | payer OTHER, SELFPAY | PROVIDERS: PCP Internal Medicine; Visit Provider Nurse Practitioner | DX: K59.00 Constipation, unspecified (principal); K21.9 Gastro-esophageal reflux disease without esophagitis; R19.7 Diarrhea, unspecified | CPT/HCPCS: 99212 ==

== ENCOUNTER 2023-10-29 10:39 | Outpatient (AMB) | payer OTHER, SELFPAY ==
--- NOTE | 2023-10-29 10:43 | A.OFFVIS_ITS ---
Vital Signs 10/29/23 10:53 Height 5 ft 11 in Weight 193 lb BMI 26.9 BP 125/59 L Blood Pressure Location Lt brachial Position Sitting Pulse 72 Intake Visit Reasons: F/U heartburn Intake Note: Patient is seen in office for follow up visit, following heartburn. Pt c/o: continued heartburn, wakes up drinks the meds prescribe and once she has a meal and coffee the heartburns starts and continues for half hours, all other meals is okay however the same issue happens during the night after having a snack. Denies any other issues such as N/v/d/c or GI related. Advertising Operations Manager Required: No Accompanied by: Self / Same As Patient Allergies No Known Allergies Allergy (Verified 10/29/23 10:51) HPI HPI F/U heartburn: Details: Assessment & Plan (1) Constipation: Code(s): K59.00 - Constipation, unspecified (2) Acute diarrhea: Code(s): R19.7 - Diarrhea, unspecified (3) GERD (gastroesophageal reflux disease): Code(s): K21.9 - Gastro-esophageal reflux disease without esophagitis Plan Indian #declines, with dtr who is supportive She continues on her aciphex 20mg bid, cimetidine, colace and simethicone and she feels that this controls her GI conditions well. Her stooling has normalized, and she does find the bentyl helpful when she has diarrhea but all is quiet now. ROV 6 mos. : CORRESPONDENCE On 10/14/23 @ 15:48 Cassia Lerma Wrote To NikkoKimberly Patient booked 10/29/23. On 10/14/23 @ 14:50 Kimberly El Wrote To Cassia Lerma V you will have to bring her in to see me, since there is not a quick answer On 10/14/23 @ 14:00 Sylvia Kapadia Wrote To Kimberly El no diet changes, no changes in meds per patient. patient states she is taking her rabeprazole. I inquired if patient smokes, she states yes, tobacco. patient also drinks coffee, which I informed her both of these things can be triggers. I inquired if when these episodes of increased heartburn occur if she has tried any OTC products, she states she does not because she is already on a PPI. On 10/14/23 @ 12:31 Sylvia Kapadia Wrote To Sylvia Kapadia telephone call x1 to patient re: below. no answer, left message advising call be returned. On 10/14/23 @ 10:30 Kimberly El Wrote To Sylvia Kapadia Martell please scope this out, any new other meds, any diet changes etc??? If you can't figure this out we may have to bring her in to see me. On 10/14/23 @ 09:38 Cassia Lerma Wrote To Kimberly El Patient reports that she is having a lot of hearburn despite taking her medications. Please advise. TODAY'S VISIT Indian #declines She continues on her aciphex bid, simethicone, colace, bentyl and cimetidine with generally good control. She does note that her HB is worse with her coffee (even if she tries to dilute it) and with oreo cookies. She will experiment with dark roast coffees or decaf for a more low acid coffee. She is struggling with sinus infections that she is having trouble clearing up. She has had several rounds of abx w/o it clearing. She has ear and teeth pressure and when she is sx. ROV 6 mos. [facility] Medical History (Updated 10/29/23 @ 12:04 by NASIM Newman) Acute diarrhea Upper abdominal pain Acanthosis nigricans H. pylori infection Family history of colon cancer Back pain GERD (gastroesophageal reflux disease) Depression with anxiety Surgical History Hx of tubal ligation History of excision of pilonidal cyst History of hysterectomy H/O esophagogastroduodenoscopy H/O colonoscopy Family History Mother Acute arthritis Plantar fasciitis Social History Household Members: Children Housing: Apartment Patient Tobacco Use Status: Never used Tobacco Substance Use Type: Marijuana Current occupational status: disabled Review of Systems Const Denies fatigue, Denies fever(s), Denies night sweats, Denies poor appetite and Denies weight loss ENT Reports Normal hearing present, Denies dental pain, Denies dysphagia, Denies hearing loss, Denies mouth pain, Denies odynophagia, Denies throat swelling, Denies tongue swelling and Reports other (Dentition adequate) Card Reports no additional complaints Resp Reports no additional complaints GI Details: Denies abdominal pain, Denies melena, Reports bloating, Denies hematochezia, Reports constipation, Denies GI cramping, Denies dysphagia, Denies excessive flatus, Denies early satiety, Reports heartburn, Denies diarrhea, Denies nausea, Denies odynophagia, Denies vomiting and Denies hematemesis Skin/Breast Denies pruritus, Denies lesions, Denies rash and Denies jaundice Neuro Reports Normal hearing present and Denies Abnormal speech present Endo Denies fatigue Aller/Immun Denies throat swelling and Denies tongue swelling Physical Exam Vital Signs: Last Vital Signs Pulse 72 10/29/23 10:53 BP 125/59 L 10/29/23 10:53 BMI result Body Mass Index 26.9 Const General: cooperative, no acute distress, well developed and well groomed Nutritional Appearance: average body habitus and well nourished Orientation/consciousness: oriented to person, oriented to place and oriented to time Limitations: No language barrier HEENT Head: Yes normocephalic and Yes atraumatic Eyes General: appearance normal, both eyes and all related structures Pupils: Equal, round and reactive pupils present Neck Neck: Yes normal visual inspection and Yes no lymphadenopathy Thyroid: Thyroid normal Resp Effort & Inspection: normal respiratory effort and able to speak in complete sentences Auscultation: clear to auscultation bilaterally Cardio Rate: regular rate Rhythm: regular rhythm Heart sounds: Normal, physiologic split S2 sound present Peripheral pulses: radial pulses present and posterior tibial pulses present GI Inspection: No distended and No Abdominal panniculus present Palpation (GI): Soft to palpation, nontender, no guarding, not rigid and No hepatosplenomegaly present Percussion: Yes normal to percussion Auscultation: normal bowel sounds Rectal Exam - Female: deferred Skin General skin exam: no rashes or lesions noted, turgor normal, skin not dry, no jaundice, No spider nevi and no striae Rashes: no rashes Nails: normal Neuro General: oriented to person, oriented to place and oriented to time Cranial nerves: Yes Equal, round and reactive pupils present and Yes Normal hearing present Speech: No Abnormal speech present Extrem General: Yes normal to inspection, No clubbing, No cyanosis and No edema Psych Appearance: grossly normal and well kempt Mental Status: mental status grossly normal Speech and movement: Normal speech and movement present Affect: normal affect Attitude: cooperative Thought process: Normal thought process present and not confabulating Thought content: Normal thought content present Insight: Limited insight present (Psych) Judgement: Limited judgement present (Psych) Assessment & Plan Assessment & Plan (1) GERD (gastroesophageal reflux disease): Code(s): K21.9 - Gastro-esophageal reflux disease without esophagitis Category: Medical (2) Constipation: Code(s): K59.00 - Constipation, unspecified Category: Medical Plan Indian #declines She continues on her aciphex bid, simethicone, colace, bentyl and cimetidine with generally good control. She does note that her HB is worse with her coffee (even if she tries to dilute it) and with oreo cookies. She will experiment with dark roast coffees or decaf for a more low acid coffee. She is struggling with sinus infections that she is having trouble clearing up. She has had several rounds of abx w/o it clearing. She has ear and teeth pressure and when she is sx. ROV 6 mos. Medications: Refilled simethicone after meals 180 mg PO .tidac 90 caps 6RF 30 days R10.10 - Upper abdominal pain, unspecified, R14.0 - Abdominal distension (gaseous) rabeprazole 20 mg PO DAILY 90 tabs 2RF K21.9 - Gastro-esophageal reflux disease without esophagitis cimetidine 800 mg PO BEDTIME 90 tabs 1RF dicyclomine 20 mg PO QID PRN 120 tabs 1RF diarrhea 30 days docusate sodium 100 mg PO BID 60 caps 6RF K59.00 - Constipation, unspecified
[2023-10-29 10:53] VITALS: BP 125/59; PULSE 72; BMI 26.9
== END 2023-10-29 11:18 | disposition home or self-care (01) ==
PROVIDERS: PCP Internal Medicine; Visit Provider Nurse Practitioner
DX: K21.9 Gastro-esophageal reflux disease without esophagitis (principal); K59.00 Constipation, unspecified
CPT/HCPCS: 99213

== ENCOUNTER → 2023-10-29 10:39 | Outpatient (BNVA) | payer OTHER, SELFPAY | PROVIDERS: PCP Internal Medicine; Visit Provider Nurse Practitioner | DX: K21.9 Gastro-esophageal reflux disease without esophagitis (principal); K59.00 Constipation, unspecified | CPT/HCPCS: 99212 ==

== ENCOUNTER 2024-03-02 09:50 | Outpatient (AMB) | payer OTHER, SELFPAY ==
[2024-03-02 09:58] VITALS: BP 140/80; PULSE 73; BMI 25.1
--- NOTE | 2024-03-02 09:58 | MHC.OFFVIS ---
Vital Signs 03/02/24 09:58 Height 5 ft 11 in Weight 179 lb 14.355 oz BMI 25.1 BP 140/80 H Blood Pressure Location Lt brachial Position Sitting Pulse 73 Intake Visit Reasons: 6 month follow up GERD, IBS Intake Note: Alejandrina presents to in office visit today in 6 months follow up of GERD and IBS. CC: Patient c/o abdominal pain that is so bad that she starts sweating and her legs start trembling about 3 times a week. She also reports that she is tired of getting so many medications and not feeling better. She also states that she is loosing a lot of weight. She sates that she is also having trouble having bowel movements and this morning was constipated. She reports a lot of heartburn. Supervisor Data Processing Required: No Accompanied by: Daughter Allergies No Known Allergies Allergy (Verified 03/02/24 10:23) HPI HPI 6 month follow up GERD, IBS: Details: Assessment & Plan (1) Constipation: Code(s): K59.00 - Constipation, unspecified (2) Acute diarrhea: Code(s): R19.7 - Diarrhea, unspecified (3) GERD (gastroesophageal reflux disease): Code(s): K21.9 - Gastro-esophageal reflux disease without esophagitis Plan [place] #declines, with dtr who is supportive She continues on her aciphex 20mg bid, cimetidine, colace and simethicone and she feels that this controls her GI conditions well. Her stooling has normalized, and she does find the bentyl helpful when she has diarrhea but all is quiet now. ROV 6 mos. : TODAY'S VISIT [place]an #dtr translates per pt request She had a sudden onset of uncontrolled burning in her stomach with everything she eats, and frequent incidents of severe diarrhea that caused so much cramping and pain she would sit on the toilet and developed diaphoresis, pallor, and tremors. It is uncertain what triggered this. From describing her pills it sounds like there was a change in her acid reducing medication and I am uncertain if this may be part of the problem. I sent rabeprazole for her as she did not respond well to multiple other trials of PPI. I think I want to bring all of her medications so we can see what she is taking and try to assess if we need to correct the pharmacy or progress to different medication regimen. In the meantime I am going to give her a light dose Carafate once at noon to address the pain in the diarrhea. I also want her to take the dicyclomine twice a day. We are going to get an ultrasound since her sister had cholecystectomy and the patient has had significant weight loss which could promote gallstones. Further testing will be pending depending on what we discover with her medications and what the result is in getting them stabilized. Return office visit tomorrow with all of her medicines and will progress from there. [facility] Medical History (Updated 03/03/24 @ 10:03 by NASIM Newman) Acute diarrhea Upper abdominal pain Acanthosis nigricans H. pylori infection Family history of colon cancer Back pain GERD (gastroesophageal reflux disease) Depression with anxiety Surgical History Hx of tubal ligation History of excision of pilonidal cyst History of hysterectomy H/O esophagogastroduodenoscopy H/O colonoscopy Family History Mother Acute arthritis Plantar fasciitis Social History Household Members: Children Housing: Apartment Patient Tobacco Use Status: Never used Tobacco Substance Use Type: Marijuana Current occupational status: disabled Review of Systems Const Reports excessive sweating, Denies fatigue, Denies fever(s), Denies night sweats, Reports poor appetite and Reports weight loss ENT Reports Normal hearing present, Denies dental pain, Denies dysphagia, Denies hearing loss, Denies mouth pain, Denies odynophagia, Denies throat swelling, Denies tongue swelling and Reports other (Dentition adequate) Card Reports no additional complaints Resp Reports no additional complaints GI Details: Reports abdominal pain, Denies melena, Reports bloating, Denies hematochezia, Denies constipation, Denies GI cramping, Denies dysphagia, Reports excessive flatus, Denies early satiety, Reports heartburn, Reports diarrhea, Denies nausea, Denies odynophagia, Denies vomiting and Denies hematemesis Skin/Breast Denies pruritus, Denies lesions, Denies rash and Denies jaundice Neuro Reports Normal hearing present and Denies Abnormal speech present Endo Reports excessive sweating and Denies fatigue Aller/Immun Denies throat swelling and Denies tongue swelling Physical Exam Vital Signs: Last Vital Signs Pulse 73 03/02/24 09:58 BP 140/80 H 03/02/24 09:58 BMI result Body Mass Index 25.1 Const General: cooperative, no acute distress, well developed and well groomed Nutritional Appearance: average body habitus and well nourished Orientation/consciousness: oriented to person, oriented to place and oriented to time Limitations: language barrier HEENT Head: Yes normocephalic and Yes atraumatic Eyes General: appearance normal, both eyes and all related structures Pupils: Equal, round and reactive pupils present Neck Neck: Yes normal visual inspection and Yes no lymphadenopathy Thyroid: Thyroid normal Resp Effort & Inspection: normal respiratory effort and able to speak in complete sentences Auscultation: clear to auscultation bilaterally Cardio Rate: regular rate Rhythm: regular rhythm Heart sounds: Normal, physiologic split S2 sound present Peripheral pulses: radial pulses present and posterior tibial pulses present GI Inspection: No distended and No Abdominal panniculus present Palpation (GI): Soft to palpation, Tenderness to palpation present (GI) in the epigastrum, no guarding, not rigid and No hepatosplenomegaly present Percussion: Yes normal to percussion Auscultation: normal bowel sounds Rectal Exam - Female: deferred Skin General skin exam: no rashes or lesions noted, turgor normal, skin not dry, no jaundice, No spider nevi and no striae Rashes: no rashes Nails: normal Neuro General: oriented to person, oriented to place and oriented to time Cranial nerves: Yes Equal, round and reactive pupils present and Yes Normal hearing present Speech: No Abnormal speech present Extrem General: Yes normal to inspection, No clubbing, No cyanosis and No edema Psych Appearance: grossly normal and well kempt Mental Status: mental status grossly normal Speech and movement: Normal speech and movement present Affect: Anxious affect present Attitude: cooperative Thought process: Normal thought process present and not confabulating Thought content: Normal thought content present Insight: Limited insight present (Psych) Judgement: Limited judgement present (Psych) Assessment & Plan Assessment & Plan (1) GERD (gastroesophageal reflux disease): Code(s): K21.9 - Gastro-esophageal reflux disease without esophagitis Category: Medical (2) Tubular adenoma of colon: Comment: 2022 scope= TA repeat in 5 years Code(s): D12.6 - Benign neoplasm of colon, unspecified Category: Medical (3) Constipation: Code(s): K59.00 - Constipation, unspecified Category: Medical (4) Abdominal pain: Code(s): R10.9 - Unspecified abdominal pain Category: Medical Plan [place]an #dtr translates per pt request She had a sudden onset of uncontrolled burning in her stomach with everything she eats, and frequent incidents of severe diarrhea that caused so much cramping and pain she would sit on the toilet and developed diaphoresis, pallor, and tremors. It is uncertain what triggered this. From describing her pills it sounds like there was a change in her acid reducing medication and I am uncertain if this may be part of the problem. I sent rabeprazole for her as she did not respond well to multiple other trials of PPI. I think I want to bring all of her medications so we can see what she is taking and try to assess if we need to correct the pharmacy or progress to different medication regimen. In the meantime I am going to give her a light dose Carafate once at noon to address the pain in the diarrhea. I also want her to take the dicyclomine twice a day. We are going to get an ultrasound since her sister had cholecystectomy and the patient has had significant weight loss which could promote gallstones. Further testing will be pending depending on what we discover with her medications and what the result is in getting them stabilized. Return office visit tomorrow with all of her medicines and will progress from there. Orders: Orders US abdomen complete 03/02/24 R10.9 - Unspecified abdominal pain Medications: New sucralfate (Carafate) 1 g PO QNOON 30 tabs 1RF R10.9 - Unspecified abdominal pain Coding Level of Care Code Est Pt Level 3 (41125) Diagnoses GERD (gastroesophageal reflux disease) K21.9 Tubular adenoma of colon D12.6 Constipation K59.00 Abdominal pain R10.9
== END 2024-03-02 13:00 | disposition home or self-care (01) ==
PROVIDERS: PCP Internal Medicine; Visit Provider Nurse Practitioner
DX: K21.9 Gastro-esophageal reflux disease without esophagitis (principal); D12.6 Benign neoplasm of colon, unspecified; K59.00 Constipation, unspecified; R10.9 Unspecified abdominal pain
CPT/HCPCS: 99213

== ENCOUNTER → 2024-03-02 09:50 | Outpatient (BNVA) | payer OTHER, SELFPAY | PROVIDERS: PCP Internal Medicine; Visit Provider Nurse Practitioner | DX: K21.9 Gastro-esophageal reflux disease without esophagitis (principal); K58.0 Irritable bowel syndrome with diarrhea; R61 Generalized hyperhidrosis; R23.1 Pallor; R25.1 Tremor, unspecified; D12.6 Benign neoplasm of colon, unspecified; R10.9 Unspecified abdominal pain | CPT/HCPCS: 99212 ==

== ENCOUNTER 2024-03-10 09:44 | Outpatient (REF) | payer OTHER, SELFPAY ==
--- NOTE | ~2024-03-10 | US_ITS ---
EXAMINATION: US ABDOMEN COMPLETE CLINICAL INFORMATION: Unspecified abdominal pain. COMPARISON: X-ray abdomen [facility] 03/02/2023. Renal ultrasound 03/01/2024 and 02/17/2023. X-ray abdomen [facility] 07/25/2021. CT abdomen and pelvis 03/04/2021. TECHNIQUE: Real-time imaging of the abdominal viscera. Limited visualization due to bowel gas.FINDINGS: PANCREAS: Limited visualization of pancreatic tail and head. Imaged portion of pancreatic body is unremarkable. ABDOMINAL AORTA: The proximal, mid, and distal segments are normal in caliber. INFERIOR VENA CAVA: Visualized portions are normal. LIVER: Hepatomegaly, 18.9 cm. Increased hepatic parenchymal heterogeneity and echogenicity could be associated with hepatocellular disease/hepatic steatosis and substantially limits visualization. Correlation with liver function tests and clinical exam recommended to determine further management. GALLBLADDER: No gallstones. No gallbladder wall thickening. COMMON BILE DUCT: Normal in caliber measuring 0.4 cm in diameter. RIGHT KIDNEY: No hydronephrosis. No renal calculi. Limited visualization. The kidney measures 10.0 cm in maximum dimension. LEFT KIDNEY: No hydronephrosis. No renal calculi. Limited visualization. The kidney measures 11.6 cm in maximum dimension. SPLEEN: Normal. The spleen measures 8.5 cm in maximum dimension. FREE FLUID: None. US/US abdomen complete IMPRESSION: Hepatomegaly, 18.9 cm. Increased hepatic parenchymal heterogeneity and echogenicity could be associated with hepatocellular disease/hepatic steatosis and substantially limits visualization. Correlation with liver function tests and clinical exam recommended to determine further management. Electronically signed by: Christal Rodriguez MD 03/20/2024 01:27 PM EDT
== END 2024-03-10 09:45 | disposition home or self-care (01) ==
LOC: HO.US 09:44
PROVIDERS: PCP Internal Medicine; Visit Provider Nurse Practitioner
DX: R10.9 Unspecified abdominal pain (principal)
CPT/HCPCS: 76700

== ENCOUNTER → 2024-04-20 14:50 | Outpatient (BNVA) | payer OTHER, SELFPAY | PROVIDERS: PCP Internal Medicine; Visit Provider Nurse Practitioner ==